=== PATIENT | female | born 1950 | race Caucasian/White ===

== ENCOUNTER 2018-09-29 06:06 | Day surgery (SDC) | payer MEDICARE, OTHER ==
[~2018-09-29] VITALS: Ht 160 cm; Wt 94.8 kg
[~2018-09-29 06:06] MED LIST: ACET500 PO; AIRBORNE; ASPIRIN-ACETAM1 EACH PO; Advil200 M1 PO; CEPH500 PO; HYDACE5 PO; LISI5 PO; OMEP20ER PO; OTC MEDS; PROC10 PO; SULTRIDS PO; TRAM50 PO; XARELTO20 MG PO
[2018-09-29] MEDS ORDERED: ACETAMINOPHEN500 MG PO (07:05)
--- NOTE | 2018-09-29 07:09 | NUR ---
History, Chart, Medications and Allergies reviewed before start of procedure. Lungs clear T/O to Auscultation.
--- NOTE | 2018-09-29 17:43 | NUR ---
SHIFT SUMMARY PAIN HAS BEEN MANAGED WITH PO PAIN MEDICATION POST OP. SHE STILL COMPLAINS OF NUMBNESS TO THE FOOT ON HER R LEG R/T SPINAL ANESTHESIA; PT REPORTS NUMBNESS IS DECREASING. SHE HAS BEEN ABLE TO STAND AND PIVOT TO THE BEDSIDE COMMODE AND UP TO THE CHAIR.
[2018-09-30 04:18] LABS: BASOPHILS ABSOLUTE AUTO 0.02 K/mm3 (0.00-0.23); BASOPHILS PERCENT AUTO 0 % (0-2); EOSINOPHILS PERCENT AUTO 0 % (0-6); Hematocrit 35.2 % (33.0-51.0); Hemoglobin 11.2 g/dL (11.5-16.0); IMMATURE GRAN ABSOLUTE AUTO 0.11 K/mm3 (0.00-0.10); IMMATURE GRAN PERCENT AUTO 1 % (0-1); LYMPHOCYTES ABSOLUTE AUTO 1.03 K/mm3 (0.84-5.20); LYMPHOCYTES PERCENT AUTO 6 % (21-46); MONOCYTES ABSOLUTE AUTO 1.05 K/mm3 (0.16-1.47); MONOCYTES PERCENT AUTO 6 % (4-13); Mean Corpuscular HGB 29.1 pg (26.0-34.0); Mean Corpuscular HGB Conc 31.8 g/dL (31.5-36.5); Mean Corpuscular Volume 91 fL (80-100); Mean Platelet Volume 9.2 fL (9.1-12.4); NEUTROPHILS ABSOLUTE AUTO 15.22 K/mm3 (1.96-9.15); NEUTROPHILS PERCENT AUTO 87 % (41-73); Platelet Count 254 K/mm3 (150-400); RDW Coefficient Variation 13.3 % (11.7-14.2); RDW Standard Deviation 44.3 fL (35.1-46.3); Red Blood Cell Count 3.85 M/mm3 (3.80-5.20); White Blood Cell Count 17.43 K/mm3 (4.00-11.30)
[2018-09-30 04:33] LABS: Anion Gap 6 mmol/L (6-16); Blood Urea Nitrogen 21 mg/dL (8-24); Bun/Creatinine Ratio 24.7 (12.0-20.0); CO2, Blood 25 mmol/L (21-32); Calcium, Blood 8.6 mg/dL (8.5-10.1); Chloride, Blood 105 mmol/L (98-108); Creatinine, Blood 0.85 mg/dL (0.40-1.00); Glomerular Filtration Rate >60 (60-); Glucose, Blood 133 mg/dL (70-99); Potassium, Blood 4.8 mmol/L (3.5-5.5); Sodium, Blood 136 mmol/L (136-145)
--- NOTE | 2018-09-30 05:59 | NUR ---
SHIFT SUMMARY PT IS POD 1 RIGHT TKA. SHE STILL HAD NUMBNESS YESTERDAY AND COULD NOT WORK WITH PT, BUT IN THE EVENING SHE WALKED IN THE LOVELL BRIEFLY AND WALKED TO THE BATHROOM ALL NIGHT. PAIN WELL CONTROLLED PER EMAR. AQUACEL C/D/I, POLAR PACK IN PLACE. WILL CTM UNTIL PASS TO NEXT SHIFT.
--- NOTE | 2018-09-30 06:55 | NUR ---
recvd report from previous shift anastacia Sanchez, pt sleeping in bed, wakens when entering room. a/0 x 4, pleasant/cooperative. bed in lowest position, bed rails up x 3, call light within reach
[2018-09-30] MEDS ORDERED: XARELTO10 MG PO (09:04)
--- NOTE | 2018-09-30 09:49 | NUR ---
physical therapy treating pt
--- NOTE | 2018-09-30 12:18 | NUR ---
PT SITTING IN CHAIR EATING LUNCH. FAMILY AT BEDSIDE. PT DENIES PAIN AT THIS TIME. CALL LIGHT IN REACH.
[2018-09-30] MEDS ORDERED: Percocet 5-3251 EACH PO (15:31)
--- NOTE | 2018-09-30 16:06 | NUR ---
provided pt with discharge instructions and printed material. pt states understanding of instruction. pt provided with prescriptions for analgesia, called presription for xarelto to [facility] [place]. peripheral IV removed wnl. pt transferred to awaiting vehicle via wheelchair, Epyon cart
== END 2018-09-30 15:58 | disposition home or self-care (01) ==
LOC: ORSCMMR 06:06 → ORD 07:30 → SURS 10:46 → ORSCMMR 09-30 15:58
PROVIDERS: Orthopaedic Surgery
PROC: 0SRC06A Replacement of Right Knee Joint with Oxidized Zirconium on Polyethylene Synthetic Substitute, Uncemented, Open Approach (ICD-10-PCS; principal; 2018-09-29 07:30)
DX: M17.11 Unilateral primary osteoarthritis, right knee (principal); I10 Essential (primary) hypertension; M06.9 Rheumatoid arthritis, unspecified; F32.9 Major depressive disorder, single episode, unspecified; Z79.899 Other long term (current) drug therapy
CPT/HCPCS: 36415; 73560-RT; 80048; 85025; 86850; 86900; 86901; 88300; 97110; 97116; 97162; 97530; C1776; J0171; J0690; J0735; J1100; J1885; J2370; J2405; J2795; J3010; J7120

== ENCOUNTER → 2019-01-11 | Outpatient (CLI) | payer MEDICARE, OTHER ==
[~2019-01-11] MED LIST changes: +ACETAMINOPHEN500 MG PO; +Percocet 5-3251 EACH PO; +XARELTO10 MG PO
[2019-01-11 18:48] LABS: U Amphetamine Screen Not Detected; U Barbituate Screen Not Detected; U Benzodiazapine Screen Not Detected; U Buprenorphine Screen Not Detected; U Cannabinoids Screen Not Detected; U Cocaine Screen Not Detected; U Methadone Screen Not Detected; U Methamphetamine Screen Not Detected; U Opiates Screen Not Detected; U Oxycodone Screen Not Detected; U Phencyclidine Screen Not Detected; U Propoxyphene Screen Not Detected
== END | disposition home or self-care (01) ==
LOC: LAB SHORT 14:34 → LAB 14:34
PROVIDERS: Nurse Practitioner Family
DX: M17.12 Unilateral primary osteoarthritis, left knee (principal); Z79.899 Other long term (current) drug therapy

== ENCOUNTER 2019-04-01 09:26 | Day surgery (SDC) | payer MEDICARE, OTHER ==
[~2019-04-01] VITALS: Ht 157.5 cm; Wt 87.6 kg
[~2019-04-01 09:26] MED LIST changes: +ACETAMINOPHEN PO; +EXCEDRIN MIGRAINE PO
--- NOTE | 2019-04-01 10:01 | NUR ---
INTO SDS VIA WHEELCHAIR. PT REPORTS 2/10 LEFT KNEE PAIN. SHE STATES THAT THIS IS A TOLERABLE LEVEL FOR HER. SHE APPEARS ANXIOUS AND REPORTS THAT HER NEPHEW IS IN THE HOSPITAL FOLLOWING A CARDIAC ARREST. PT TEARFUL. RN SUPPORTIVE AND ABLE TO CONSOLE HER AT THIS TIME. History, Chart, Medications and Allergies reviewed before start of procedure.Lungs clear T/O to Auscultation. Patient confirms NPO status and agrees with scheduled surgery. Patient reports completing Chlorhexadine shower X2 prior to admission to hospital.Surgical site prepped with 2% Chlorhexidine cloth wipe.
--- NOTE | 2019-04-01 10:35 | NUR ---
PT STATES THAT SHE IS A VERY DIFFICULT VENIPUNCTURE. ULTASOUND USED TO PLACE #18 TO RIGHT UPPER ARM. PT EXTREMELY ANXIOUS DURING IV PLACEMENT. PT APPEARED TO HOLD HER BREATH AND CRIED OUT "OUCH!"
--- NOTE | 2019-04-01 18:15 | NUR ---
SUMMARY PATIENT ALERT AND EATING DINNER. PATIENT REPORTS PAIN IS CURRENTLY 3/10 WHICH IS ACCEPTABLE LEVEL TO HER. LEFT KNEE DRESSING DRY AND INTACT
[2019-04-02 04:28] LABS: BASOPHILS ABSOLUTE AUTO 0.01 K/mm3 (0.00-0.23); BASOPHILS PERCENT AUTO 0 % (0-2); EOSINOPHILS PERCENT AUTO 0 % (0-6); Hematocrit 33.5 % (33.0-51.0); Hemoglobin 10.5 g/dL (11.5-16.0); IMMATURE GRAN ABSOLUTE AUTO 0.09 K/mm3 (0.00-0.10); IMMATURE GRAN PERCENT AUTO 1 % (0-1); LYMPHOCYTES ABSOLUTE AUTO 1.15 K/mm3 (0.84-5.20); LYMPHOCYTES PERCENT AUTO 7 % (21-46); MONOCYTES ABSOLUTE AUTO 0.73 K/mm3 (0.16-1.47); MONOCYTES PERCENT AUTO 4 % (4-13); Mean Corpuscular HGB 29.1 pg (26.0-34.0); Mean Corpuscular HGB Conc 31.3 g/dL (31.5-36.5); Mean Corpuscular Volume 93 fL (80-100); Mean Platelet Volume 8.9 fL (9.1-12.4); NEUTROPHILS ABSOLUTE AUTO 15.77 K/mm3 (1.96-9.15); NEUTROPHILS PERCENT AUTO 89 % (41-73); Platelet Count 261 K/mm3 (150-400); RDW Coefficient Variation 14.7 % (11.7-14.2); RDW Standard Deviation 50.8 fL (35.1-46.3); Red Blood Cell Count 3.61 M/mm3 (3.80-5.20); White Blood Cell Count 17.75 K/mm3 (4.00-11.30)
[2019-04-02 04:43] LABS: Anion Gap 6 mmol/L (6-16); Blood Urea Nitrogen 26 mg/dL (8-24); Bun/Creatinine Ratio 29.2 (12.0-20.0); CO2, Blood 23 mmol/L (21-32); Calcium, Blood 8.3 mg/dL (8.5-10.1); Chloride, Blood 108 mmol/L (98-108); Creatinine, Blood 0.89 mg/dL (0.40-1.00); Glomerular Filtration Rate >60 (60-); Glucose, Blood 150 mg/dL (70-99); Potassium, Blood 5.3 mmol/L (3.5-5.5); Sodium, Blood 137 mmol/L (136-145)
--- NOTE | 2019-04-02 07:12 | NUR ---
SUMMARY: POD [address] RODRÍGUEZ. VSS, AFEBRILE, ROOM AIR, TOLERATING REG DIET AND VOIDING CLEAR YELLOW URINE. PT PAIN WELL CONTROLLED WITH 10MG ROXICODONE, TYLENOL AND TORDAL. 1 ASSIST WITH GB AND WW FOR BRP. ANTICIPATE PT/OT THIS DAY AND PROBABLE DC HOME.
--- NOTE | 2019-04-02 07:16 | NUR ---
04/02/19 0716 Lori Wing VERIFICATIONS: EDIT CHART.
[2019-04-02] MEDS ORDERED: Percocet 5-3251 EACH PO (10:09)
[2019-04-02] MEDS ORDERED: XARELTO15 MG PO (10:11)
--- NOTE | 2019-04-02 15:57 | NUR ---
DISCHARGE DISCHARGED TO HOME WITH A FRIEND AT 1550
== END 2019-04-02 15:55 | disposition home or self-care (01) ==
LOC: ORSCMMR 09:26 → ORD 11:15 → ORSCMMR 14:10 → SURS 14:10 → ORSCMMR 04-02 15:55 → SURS 04-02 15:55
PROVIDERS: Orthopaedic Surgery
PROC: 0SRD0JA Replacement of Left Knee Joint with Synthetic Substitute, Uncemented, Open Approach (ICD-10-PCS; principal; 2019-04-01 11:15)
DX: M17.12 Unilateral primary osteoarthritis, left knee (principal); I10 Essential (primary) hypertension; F41.8 Other specified anxiety disorders; M19.90 Unspecified osteoarthritis, unspecified site; E66.9 Obesity, unspecified; Z68.35 Body mass index [BMI] 35.0-35.9, adult; K21.9 Gastro-esophageal reflux disease without esophagitis; Z79.899 Other long term (current) drug therapy
CPT/HCPCS: 36415; 73560-LT; 80048; 85025; 86850; 86900; 86901; 87081; 88300; 97116; 97161; 97530; C1776; J0171; J0690; J0735; J1100; J1885; J2250; J2405; J2704; J2765; J2795; J3010; J7120

== ENCOUNTER → 2020-05-01 | Outpatient (CLI) | payer MEDICARE, OTHER ==
[~2020-05-01] MED LIST changes: +XARELTO15 MG PO
[2020-05-02 06:57] LABS: Candida species (DNA Probe) Positive (NEGATIVE); G. vaginalis (DNA Probe) Positive (NEGATIVE); T. vaginalis (DNA Probe) Negative (NEGATIVE)
[2020-05-03 11:08] LABS: HPV 16 Negative (Negative); HPV 18 Negative (Negative); HPV OTHER HR TYPES Negative (Negative)
== END | disposition home or self-care (01) ==
LOC: LAB SHORT 15:58 → LAB 15:58
PROVIDERS: Nurse Practitioner Family
DX: Z12.4 Encounter for screening for malignant neoplasm of cervix (principal); N95.0 Postmenopausal bleeding; N76.0 Acute vaginitis
CPT/HCPCS: 87480; 87510; 87624; 87660; 88175

== ENCOUNTER 2020-07-06 11:57 | Day surgery (SDC) | payer MEDICARE, OTHER ==
[2020-07-04 13:27] LABS: BASOPHILS ABSOLUTE AUTO 0.02 K/mm3 (0.00-0.23); BASOPHILS PERCENT AUTO 0 % (0-2); EOSINOPHILS ABSOLUTE AUTO 0.05 K/mm3 (0.00-0.68); EOSINOPHILS PERCENT AUTO 1 % (0-6); Hematocrit 41.6 % (33.0-51.0); Hemoglobin 13.2 g/dL (11.5-16.0); IMMATURE GRAN ABSOLUTE AUTO 0.01 K/mm3 (0.00-0.10); IMMATURE GRAN PERCENT AUTO 0 % (0-1); LYMPHOCYTES PERCENT AUTO 20 % (21-46); MONOCYTES ABSOLUTE AUTO 0.52 K/mm3 (0.16-1.47); MONOCYTES PERCENT AUTO 7 % (4-13); Mean Corpuscular HGB 28.6 pg (26.0-34.0); Mean Corpuscular HGB Conc 31.7 g/dL (31.5-36.5); Mean Corpuscular Volume 90 fL (80-100); Mean Platelet Volume 9.2 fL (9.1-12.4); NEUTROPHILS ABSOLUTE AUTO 5.58 K/mm3 (1.96-9.15); NEUTROPHILS PERCENT AUTO 73 % (41-73); Platelet Count 300 K/mm3 (150-400); RDW Coefficient Variation 13.7 % (11.7-14.2); Red Blood Cell Count 4.61 M/mm3 (3.80-5.20); White Blood Cell Count 7.68 K/mm3 (4.00-11.30)
[2020-07-04 14:24] LABS: Alanine Aminotransfer (ALT/SGP 17 U/L (12-78); Albumin, Blood 3.6 g/dL (3.4-5.0); Alk Phos 111 U/L (50-136); Anion Gap 9 mmol/L (6-16); Aspartate Aminotrans (AST/SGOT 11 U/L (12-37); Bilirubin, Total 0.3 mg/dL (0.1-1.0); Blood Urea Nitrogen 19 mg/dL (8-24); Bun/Creatinine Ratio 20.5 (12.0-20.0); CO2, Blood 20 mmol/L (21-32); Calcium, Blood 9.1 mg/dL (8.5-10.1); Chloride, Blood 114 mmol/L (98-108); Creatinine, Blood 0.93 mg/dL (0.40-1.00); Globulin, Blood 3.5 g/dL (2.2-4.0); Glomerular Filtration Rate >60 (60-); Glucose, Blood 111 mg/dL (70-99); Potassium, Blood 4.3 mmol/L (3.5-5.5); Sodium, Blood 143 mmol/L (136-145); Total Protein, Blood 7.1 g/dL (6.4-8.2)
[~2020-07-06] VITALS: Ht 160 cm; Wt 98.2 kg
[~2020-07-06 11:57] MED LIST changes: +ZESTRIL40 M1 PO
--- NOTE | 2020-07-06 16:21 | NUR ---
07/06/20 1621 Mira Dean PATIENT IN RECLINER, FAMILY AT SIDE. NO C/O PAIN OR NAUSEA AT THIS TIME. ENCOURAGING PATIENT TO DRINK FLUIDS. VSS. DISCHARGE INSTRUCTIONS GIVEN. PATIENT INSTRUCTED THAT SHE WOULD NEED TO URINATE PRIOR TO DISCHARGE PATIENT VERBALIZES UNDERSTANDING. WILL CONTINUE TO MONITOR.
== END 2020-07-06 16:39 | disposition home or self-care (01) ==
LOC: ORSCSDS 11:57
PROVIDERS: Obstetrics & Gynecology
PROC: 0UB98ZX Excision of Uterus, Via Natural or Artificial Opening Endoscopic, Diagnostic (ICD-10-PCS; principal; 2020-07-06 13:15)
DX: N95.0 Postmenopausal bleeding (principal); N84.0 Polyp of corpus uteri; I10 Essential (primary) hypertension; K21.9 Gastro-esophageal reflux disease without esophagitis; E78.00 Pure hypercholesterolemia, unspecified; E66.01 Morbid (severe) obesity due to excess calories; Z68.38 Body mass index [BMI] 38.0-38.9, adult; Z79.899 Other long term (current) drug therapy
CPT/HCPCS: 36415; 80053; 85025; 86850; 86900; 86901; 88305; J1885; J2250; J2704; J3010

== ENCOUNTER 2023-07-08 06:28 | Day surgery (SDC) | payer MEDICARE, OTHER ==
[~2023-07-08] VITALS: Ht 152.4 cm; Wt 97.3 kg
[2023-07-08] VITALS (13 sets, daily range): BP systolic 81–134; BP diastolic 57–96
[~2023-07-08 06:28] MED LIST changes: +ATOR20 PO; +Acetaminophen650 M1 PO; +GABA300 PO
--- NOTE | 2023-07-08 07:08 | NUR ---
Ambulatory in Day Surgery with [facility]. History, Chart, Medications and Allergies reviewed before start of procedure. Patient confirms NPO status and agrees with scheduled surgery. Surgical site prepped with 2% Chlorhexidine cloth wipe. Patient reports completing Chlorhexadine shower X2 prior to admission to hospital. Pre-Op teaching done. Pt verbalizes understanding.
--- NOTE | 2023-07-08 19:31 | NUR ---
SHIFT SUMMARY PT POD 0 R CARLIN. AQUACELL DRESSIN TO R HIP C/D/I. PAS/SO HOSE IN PLACE. PT VOIDING W/O DIFFICULTY. PAIN MANAGED PER EMAR. TOLERATING REGULAR DIET WITH NO N/V. UP TO CHAIR W/PT, SBA AMBULATION WITH GAIT BELT AND FWW. PLAN TO DC HOME TOMORROW.
[2023-07-09] VITALS (11 sets, daily range): BP systolic 82–117; BP diastolic 44–64
[2023-07-09 04:35] LABS: BASOPHILS ABSOLUTE AUTO 0.02 K/mm3 (0.00-0.23); BASOPHILS PERCENT AUTO 0 % (0-2); EOSINOPHILS PERCENT AUTO 1 % (0-6); Hematocrit 35.2 % (33.0-51.0); Hemoglobin 11.4 g/dL (11.5-16.0); IMMATURE GRAN ABSOLUTE AUTO 0.04 K/mm3 (0.00-0.10); IMMATURE GRAN PERCENT AUTO 0 % (0-1); LYMPHOCYTES ABSOLUTE AUTO 1.14 K/mm3 (0.84-5.20); LYMPHOCYTES PERCENT AUTO 11 % (21-46); MONOCYTES ABSOLUTE AUTO 0.79 K/mm3 (0.16-1.47); MONOCYTES PERCENT AUTO 8 % (4-13); Mean Corpuscular HGB 29.2 pg (26.0-34.0); Mean Corpuscular HGB Conc 32.4 g/dL (31.5-36.5); Mean Corpuscular Volume 90 fL (80-100); Mean Platelet Volume 9.1 fL (9.1-12.4); NEUTROPHILS PERCENT AUTO 79 % (41-73); Platelet Count 227 K/mm3 (150-400); RDW Coefficient Variation 13.9 % (11.7-14.2); RDW Standard Deviation 45.6 fL (35.1-46.3); White Blood Cell Count 9.99 K/mm3 (4.00-11.30)
[2023-07-09 04:58] LABS: Bun/Creatinine Ratio 20.7 (12.0-20.0); Calcium, Blood 7.9 mg/dL (8.5-10.1); Creatinine, Blood 0.96 mg/dL (0.40-1.00); Potassium, Blood 4.2 mmol/L (3.5-5.5)
--- NOTE | 2023-07-09 07:20 | NUR ---
SHIFT SUMMARY NOC. PT POD 1 FOR RIGHT TOTAL HIP PERFORMED BY DR. RODRÍGUEZ. PT A/O X4. PT TOLERATING PO INTAKE AND AMBULATING TO THE BR TO VOID. PT'S AQUACEL IS C/D/I. PT'S BLOOD PRESSURE HAS BEEN IN THE 90S SYSTOLIC SINCE APPROXIMATLY 0430. FREQUENT BLOOD PRESSURE RECHECKS DONE AND PT DENIES BEING SYMPTOMATIC. PT'S IV INFILTRATED CLOSE TO SHIFT CHANGE. REPORT ABOUT BLOOD PRESSURE GIVEN TO DAY SHIFT RN. PT MEDICATED FOR PAIN X1 WITH RELIEF OF SYMPTOMS LAST NIGHT. PT RESTED WITH EYES CLOSED AND CALL LIGHT IN REACH.
[2023-07-09] MEDS ORDERED: ASPI81CH PO (11:49)
[2023-07-09] MEDS ORDERED: Percocet 5-3251 EACH PO (11:49)
--- NOTE | 2023-07-09 13:39 | NUR ---
DISCHARGE WHILE BP's WERE RUNNING LOW THIS AM, RESPONDED WELL TO IVF. HAS DENIED DIZZINESS OR LIGHTHEADEDNESS T/O AMBULATION & THERAPY. PAIN REASONABLY CONTROLLED & EATING & DRINKING WELL. ESCORTED OUT VIA WC w/ ALREADY FILLED SCRIPTS, CRYOTHERAPY, & DRSGS.
--- NOTE | 2023-07-10 08:33 | NUR ---
07/10/23 0833 Lori Wing VERIFICATIONS: EDIT CHART.
== END 2023-07-09 13:30 | disposition home or self-care (01) ==
LOC: ORSCMMR 06:28 → ORD 07:30 → SURS 10:01 → ORSCMMR 07-09 13:30 → SURS 07-09 13:30
PROVIDERS: Orthopaedic Surgery
PROC: 0SR90JZ Replacement of Right Hip Joint with Synthetic Substitute, Open Approach (ICD-10-PCS; principal; 2023-07-08 07:30)
DX: M16.11 Unilateral primary osteoarthritis, right hip (principal); Z96.653 Presence of artificial knee joint, bilateral; I10 Essential (primary) hypertension; Z79.899 Other long term (current) drug therapy; Z68.41 Body mass index [BMI] 40.0-44.9, adult
CPT/HCPCS: 36415; 72170; 80048; 85025; 97110; 97116; 97162; A9270; C1776; J0171; J0690; J0735; J1885; J2250; J2704; J2795; J3010; J7120

== ENCOUNTER 2024-04-08 10:30 | Emergency (ER) | payer MEDICARE, OTHER ==
[~2024-04-08] VITALS: Ht 160 cm; Wt 79.4 kg
[~2024-04-08 10:30] MED LIST changes: +ASPI81CH PO
[2024-04-08] MEDS ORDERED: Ketorolac Tromethamine 15mg Vial IV ONE (10:50)
[2024-04-08] MEDS ORDERED: Ondansetron HCl 2 MG / ML 2ML Vial IV ONE (10:50)
[2024-04-08 11:16] LABS: BASOPHILS ABSOLUTE AUTO 0.02 K/mm3 (0.00-0.23); BASOPHILS PERCENT AUTO 0 % (0-2); EOSINOPHILS ABSOLUTE AUTO 0.15 K/mm3 (0.00-0.68); EOSINOPHILS PERCENT AUTO 2 % (0-6); Hemoglobin 13.3 g/dL (11.5-16.0); IMMATURE GRAN ABSOLUTE AUTO 0.03 K/mm3 (0.00-0.10); IMMATURE GRAN PERCENT AUTO 0 % (0-1); LYMPHOCYTES ABSOLUTE AUTO 2.03 K/mm3 (0.84-5.20); LYMPHOCYTES PERCENT AUTO 28 % (21-46); MONOCYTES ABSOLUTE AUTO 0.56 K/mm3 (0.16-1.47); MONOCYTES PERCENT AUTO 8 % (4-13); Mean Corpuscular HGB 28.7 pg (26.0-34.0); Mean Corpuscular HGB Conc 31.7 g/dL (31.5-36.5); Mean Corpuscular Volume 91 fL (80-100); NEUTROPHILS ABSOLUTE AUTO 4.58 K/mm3 (1.96-9.15); NEUTROPHILS PERCENT AUTO 62 % (41-73); Platelet Count 304 K/mm3 (150-400); RDW Coefficient Variation 13.4 % (11.7-14.2); RDW Standard Deviation 44.8 fL (35.1-46.3); Red Blood Cell Count 4.64 M/mm3 (3.80-5.20); White Blood Cell Count 7.37 K/mm3 (4.00-11.30)
[2024-04-08 11:40] LABS: Albumin, Blood 3.7 g/dL (3.4-5.0); Albumin/Globulin Ratio 1.1 (0.8-1.8); Bilirubin, Total 0.2 mg/dL (0.1-1.0); Bun/Creatinine Ratio 22.1 (12.0-20.0); Calcium, Blood 9.1 mg/dL (8.5-10.1); Creatinine, Blood 0.95 mg/dL (0.40-1.00); Globulin, Blood 3.4 g/dL (2.2-4.0); Potassium, Blood 4.2 mmol/L (3.5-5.5); Total Protein, Blood 7.1 g/dL (6.4-8.2)
[2024-04-08] MEDS ORDERED: Morphine Sulfate 4 MG/1 ML Injection IV ONE (11:40)
[2024-04-08] MEDS ORDERED: NS 1,000 ML IV SCH (11:40)
[2024-04-08 13:05] VITALS: BP 152/84
[2024-04-08 13:19] LABS: Source, Urine Clean Catch
[2024-04-08 13:30] LABS: Appearance, Urine Clear (Clear); Bilirubin, Urine Neg (Neg); Blood, Urine Neg (Neg); Color, Urine Yellow (P-Yellow); Glucose Qualitative, Urine Neg (Neg); Ketones, Urine Neg (Neg); Leukocyte Esterase, Urine Neg (Neg); Nitrite, Urine Neg (Neg); Protein, Urine 1+ (Neg); Urobilinogen, Urine NORM (Normal)
== END 2024-04-08 14:05 | disposition home or self-care (01) ==
LOC: ER 10:30
PROVIDERS: Physician Assistant; Student in an Organized Health Care Education/Training Program
DX: K80.70 Calculus of gallbladder and bile duct without cholecystitis without obstruction (principal); I10 Essential (primary) hypertension; E78.5 Hyperlipidemia, unspecified; K21.9 Gastro-esophageal reflux disease without esophagitis; Z79.899 Other long term (current) drug therapy
CPT/HCPCS: 74177; 76705; 80053; 83690; 84484; 85025; 96361; 96374-59; 96375; 99284-25; J1885; J2270; J2405; J7030; Q9967

== ENCOUNTER → 2025-06-02 | Outpatient (CLI) | payer MEDICARE, OTHER ==
[~2025-06-02] MED LIST changes: +GABA100 PO; +HYDR1TAB94 PO; +IBUP400 PO
[2025-06-02 19:41] LABS: BASOPHILS ABSOLUTE AUTO 0.03 K/mm3 (0.00-0.23); BASOPHILS PERCENT AUTO 0 % (0-2); EOSINOPHILS ABSOLUTE AUTO 0.12 K/mm3 (0.00-0.68); EOSINOPHILS PERCENT AUTO 1 % (0-6); Hematocrit 41.1 % (33.0-51.0); Hemoglobin 13.3 g/dL (11.5-16.0); IMMATURE GRAN ABSOLUTE AUTO 0.02 K/mm3 (0.00-0.10); IMMATURE GRAN PERCENT AUTO 0 % (0-1); LYMPHOCYTES ABSOLUTE AUTO 1.87 K/mm3 (0.84-5.20); LYMPHOCYTES PERCENT AUTO 21 % (21-46); MONOCYTES ABSOLUTE AUTO 0.69 K/mm3 (0.16-1.47); MONOCYTES PERCENT AUTO 8 % (4-13); Mean Corpuscular HGB Conc 32.4 g/dL (31.5-36.5); Mean Corpuscular Volume 89 fL (80-100); NEUTROPHILS ABSOLUTE AUTO 6.00 K/mm3 (1.96-9.15); NEUTROPHILS PERCENT AUTO 69 % (41-73); NRBC ABSOLUTE 0.00 K/mm3 (0.00-0.02); NRBC Auto 0.0 /100 WBC (0.0-0.2); Platelet Count 287 K/mm3 (150-400); RDW Coefficient Variation 14.0 % (11.7-14.2); RDW Standard Deviation 45.3 fL (35.1-46.3)
[2025-06-02 20:03] LABS: Alanine Aminotransfer (ALT/SGP 24 U/L (12-78); Albumin, Blood 3.8 g/dL (3.4-5.0); Albumin/Globulin Ratio 1.1 (0.8-1.8); Anion Gap 7 mmol/L (3-11); Aspartate Aminotrans (AST/SGOT 18 U/L (12-37); Bilirubin, Total 0.5 mg/dL (0.1-1.0); Blood Urea Nitrogen 12 mg/dL (8-24); CHOL/HDL RATIO 4.3; CO2, Blood 25 mmol/L (21-32); Calcium, Blood 9.2 mg/dL (8.5-10.1); Chloride, Blood 110 mmol/L (98-108); Cholesterol 166 mg/dL (50-200); Creatinine, Blood 0.82 mg/dL (0.40-1.00); Globulin, Blood 3.4 g/dL (2.2-4.0); Glucose, Blood 90 mg/dL (70-99); HDL Cholesterol 39 mg/dL (>39); LDL/HDL RATIO 2.4; Low Density Lipoprotein Chol 95 mg/dL (0-110); Potassium, Blood 4.1 mmol/L (3.5-5.5); Sodium, Blood 138 mmol/L (136-145); Total Protein, Blood 7.2 g/dL (6.4-8.2); Triglycerides 162 mg/dL (30-160); Very Low Density Lipoprot Chol 32 mg/dL (6-32)
== END ==
LOC: LAB 18:36 → LAB SHORT 18:36
PROVIDERS: Student in an Organized Health Care Education/Training Program
DX: E78.2 Mixed hyperlipidemia (principal); M54.16 Radiculopathy, lumbar region; F33.1 Major depressive disorder, recurrent, moderate
CPT/HCPCS: 80053; 80061; 85025